=== PATIENT | female | born 1995 ===

== ENCOUNTER 2018-05-02 12:05 | Inpatient (IN) ==
[2018-05-02] MEDS ORDERED: LACTATED RINGERS 1,000 ML IV ONE (12:39)
[2018-05-02] MEDS ORDERED: ONDANSETRON 4 MG/2 ML VIAL IV PRN (12:39)
[2018-05-02] MEDS ORDERED: BUTORPHANOL 2 MG/ML VIAL IV PRN (12:39)
[2018-05-02 13:31] LABS: Basophils % 0.2 % (0.0-0.8); Eosinophils % 0.5 % (0.00-10.9); Hematocrit 35.3 VOL% (35.7-47.0); Hemoglobin 11.7 GM/DL (12.0-16.0); Immature Granulocytes % 0.3 %; Immature Granulocytes Absolute 0.03 #; Lymphocytes # 1.9 10*3/uL (1.4-4.0); Lymphocytes % 22.1 % (21.3-54.2); Mean Corpuscular HGB Conc 33.1 GM/DL (32-36); Mean Corpuscular Hemoglobin 28 PG (27-34); Mean Corpuscular Volume 85.5 FL (87-102); Mean Platelet Volume 11.4 FL (9.6-12.0); Monocytes # 0.5 10*3/uL (0.11-0.8); Monocytes % 6.1 % (1.7-12.7); Neutrophils # 6.1 10*3/uL (1.4-7.4); Neutrophils % 70.8 % (38.7-73.9); Platelet Count 250 T/CUMM (130-400); Red Blood Count 4.13 MC/CUMM (3.8-5.5); Red Cell Distribution Width 14.4 % (9.3-17.3); White Blood Count 8.7 T/CUMM (4-12)
[2018-05-02 13:48] LABS: Albumin 2.5 G/DL (3.4-5.0); Bilirubin,Total 0.4 MG/DL (0.2-1.0); Calcium 8.3 MG/DL (8.5-10.1); Osmolality,Calculated 273.5 MOS/KG (273-304); Potassium 3.8 MMOL/L (3.5-5.1)
[2018-05-02] MEDS: LACTATED RINGERS 1,000 ML IV SCH (15:27)
[2018-05-03] MEDS: LACTATED RINGERS 1,000 ML IV SCH ×2 (00:30→08:54)
[2018-05-03] MEDS: MEPERIDINE 50 MG/1 ML VIAL IV PRN ×2 (00:35→06:45)
[2018-05-03] MEDS ORDERED: FAMOTIDINE 20 MG/2 ML VIAL IV ONE (09:35)
[2018-05-03] MEDS ORDERED: ePHEDrine 50 MG/ML AMP IV PRN (09:35)
[2018-05-03] MEDS ORDERED: diphenhydrAMINE 50 MG/1 ML VIAL IV PRN (09:35)
[2018-05-03] MEDS ORDERED: CITRIC ACID/SODIUM CITRATE 30 ML UDCUP PO ONE (09:35)
[2018-05-03] MEDS ORDERED: LACTATED RINGERS 1,000 ML IV ONE (09:35)
[2018-05-03] MEDS ORDERED: fentaNYL 2 MCG/ROPIV 0.2% EPID 150 ML EPIDURAL SCH (10:00)
[2018-05-03] MEDS ORDERED: OXYTOCIN/LR 20 UNIT/1,000 ML BAG IV SCH (10:30)
[2018-05-03 11:42] LABS: Apearance,Urine CLEAR (Clear); Bacteria,Urine Occasional /HPF (Few); Bilirubin,Urine Negative (Negative); Blood, Urine Negative (Negative); Glucose,Urine (UA) Negative (Negative); Ketones,Urine Negative (Negative); Nitrite,Urine Negative (Negative); Protein,Urine Negative; RBC,Urine <1 /HPF (0-4); Urine Color Straw (Yellow); Urine Specific Gravity 1.006 (1.001-1.035); Urine Urobilinogen < 2.0 EU/DL (0.2-1.0); WBC,Urine 1 /HPF (0-6)
[2018-05-03] MEDS ORDERED: OXYTOCIN/LR 20 UNIT/1,000 ML BAG IV ONE ×2 (12:59→15:52)
[2018-05-03] MEDS ORDERED: AMPICILLIN/SULBACTAM 3,000 MG in SODIUM CHLORIDE 0.9% 100 ML IV ONE (12:59)
[2018-05-03] MEDS ORDERED: LIDOCAINE MPF 2% /EPI 20 ML VIAL ONE (13:02)
[2018-05-03] MEDS ORDERED: OXYTOCIN 10 UNIT/ML VIAL ONE (13:02)
[2018-05-03] MEDS ORDERED: MORPHINE 10 MG/10 ML VIAL ONE (13:02)
[2018-05-03] MEDS ORDERED: KETOROLAC 60 MG/2 ML VIAL IM ONE (13:02)
[2018-05-03] MEDS ORDERED: ONDANSETRON 4 MG/2 ML VIAL IV PRN (15:52)
[2018-05-03] MEDS ORDERED: SIMETHICONE CHEW 80 MG TABLET PO PRN (15:52)
[2018-05-03] MEDS ORDERED: MAGNESIUM HYDROXIDE SUSP 30 ML UDCUP PO PRN (15:52)
[2018-05-03] MEDS ORDERED: ACETAMINOPHEN 325 MG TABLET PO PRN (15:52)
[2018-05-03] MEDS ORDERED: RHO(D) IMMUNE GLOBULIN 300 MCG SYRINGE IM ONE (15:52)
[2018-05-03] MEDS ORDERED: ceFAZolin 1,000 MG in SYRINGE 1 EACH IV SCH (16:00)
[2018-05-03 16:09] LABS: Cord Arterial Blood HCO3 25.2 MMOL/L
[2018-05-03 16:11] LABS: Cord Venous Blood HCO3 23.9 MMOL/L; Cord Venous Blood PCO2 44.5 MMHG; Cord Venous Blood PO2 36.9 MMHG
[2018-05-03] MEDS ORDERED: hydrOXYzine HCL 25 MG/1 ML VIAL IM PRN (16:11)
[2018-05-03] MEDS ORDERED: MORPHINE 10 MG/1 ML VIAL IV PRN (16:12)
[2018-05-03] MEDS ORDERED: fentaNYL 100 MCG/2 ML VIAL ONE (16:14)
[2018-05-03] MEDS ORDERED: MIDAZOLAM 2 MG/2 ML VIAL ONE (16:14)
[2018-05-03] MEDS ORDERED: KETAMINE 500 MG/10 ML VIAL ONE (16:15)
[2018-05-03] MEDS: ceFAZolin 1,000 MG in SYRINGE 1 EACH IV SCH (23:35)
[2018-05-04] MEDS: LACTATED RINGERS 1,000 ML IV SCH ×2 (00:42→00:54)
[2018-05-04] MEDS: DOCUSATE SODIUM 100 MG CAPSULE PO SCH ×3 (01:06→21:32)
[2018-05-04 01:16] LABS: Basophils % 0.1 % (0.0-0.8); Eosinophils % 0.4 % (0.00-10.9); Hematocrit 31.9 VOL% (35.7-47.0); Hemoglobin 10.8 GM/DL (12.0-16.0); Immature Granulocytes % 0.3 %; Immature Granulocytes Absolute 0.03 #; Lymphocytes # 1.8 10*3/uL (1.4-4.0); Lymphocytes % 19.7 % (21.3-54.2); Mean Corpuscular HGB Conc 33.9 GM/DL (32-36); Mean Corpuscular Hemoglobin 29 PG (27-34); Mean Corpuscular Volume 84.4 FL (87-102); Mean Platelet Volume 10.6 FL (9.6-12.0); Monocytes # 0.7 10*3/uL (0.11-0.8); Monocytes % 7.5 % (1.7-12.7); Neutrophils # 6.7 10*3/uL (1.4-7.4); Platelet Count 214 T/CUMM (130-400); Red Blood Count 3.78 MC/CUMM (3.8-5.5); Red Cell Distribution Width 14.4 % (9.3-17.3); White Blood Count 9.4 T/CUMM (4-12)
[2018-05-04] MEDS ORDERED: BENZOCAINE/MENTHOL LOZENGE 18/BOX PO PRN (03:50)
[2018-05-04] MEDS: ceFAZolin 1,000 MG in SYRINGE 1 EACH IV SCH (06:39)
[2018-05-04] MEDS: MULTIVITAMIN (PRENATAL) TABLET PO SCH (08:54)
[2018-05-04 09:26] LABS: Basophils % 0.3 % (0.0-0.8); Eosinophils # 0.1 10*3/uL (0.0-0.87); Eosinophils % 0.9 % (0.00-10.9); Hematocrit 29.8 VOL% (35.7-47.0); Hemoglobin 9.5 GM/DL (12.0-16.0); Immature Granulocytes % 0.3 %; Immature Granulocytes Absolute 0.02 #; Lymphocytes # 1.8 10*3/uL (1.4-4.0); Lymphocytes % 23.1 % (21.3-54.2); Mean Corpuscular HGB Conc 31.9 GM/DL (32-36); Mean Corpuscular Hemoglobin 28 PG (27-34); Mean Corpuscular Volume 86.6 FL (87-102); Mean Platelet Volume 10.7 FL (9.6-12.0); Monocytes # 0.7 10*3/uL (0.11-0.8); Monocytes % 8.5 % (1.7-12.7); Neutrophils # 5.1 10*3/uL (1.4-7.4); Neutrophils % 66.9 % (38.7-73.9); Platelet Count 194 T/CUMM (130-400); Red Blood Count 3.44 MC/CUMM (3.8-5.5); Red Cell Distribution Width 14.4 % (9.3-17.3); White Blood Count 7.7 T/CUMM (4-12)
[2018-05-04] MEDS: IBUPROFEN 800 MG TABLET PO PRN (13:48)
[2018-05-05] MEDS: IBUPROFEN 800 MG TABLET PO PRN (00:59)
[2018-05-05] MEDS: MULTIVITAMIN (PRENATAL) TABLET PO SCH (08:36)
[2018-05-05] MEDS: DOCUSATE SODIUM 100 MG CAPSULE PO SCH ×2 (08:36→21:07)
[2018-05-06 07:13] VITALS: BP 128/68
[2018-05-06] MEDS: MULTIVITAMIN (PRENATAL) TABLET PO SCH (08:26)
[2018-05-06] MEDS: DOCUSATE SODIUM 100 MG CAPSULE PO SCH (08:26)
== END 2018-05-06 10:20 | disposition home or self-care (01) | DRG 540 ==
LOC: N.LDOUT 12:05 → N.LD 12:06 → N.OB 05-03 18:18
PROVIDERS: ADMIT Obstetrics & Gynecology; ATTEND Obstetrics & Gynecology
PROC: LDCSECT (ICD-10-PCS; 2018-05-03 12:55)

== ENCOUNTER 2019-06-21 15:14 | Inpatient (IN) ==
[2019-06-21] MEDS ORDERED: CITRIC ACID/SODIUM CITRATE 30 ML UDCUP PO ONE (15:21)
[2019-06-21] MEDS ORDERED: ceFAZolin 3,000 MG in SYRINGE 1 EACH IV ONE (15:21)
[2019-06-21] MEDS ORDERED: FAMOTIDINE 20 MG/2 ML VIAL IV ONE (15:21)
[2019-06-21] MEDS ORDERED: LACTATED RINGERS 1,000 ML IV SCH ×2 (15:30→20:30)
[2019-06-21 15:45] LABS: Basophils % 0.1 % (0.0-0.8); Eosinophils % 0.6 % (0.00-10.9); Hematocrit 34.5 VOL% (35.7-47.0); Hemoglobin 10.7 GM/DL (12.0-16.0); Immature Granulocytes % 0.4 %; Immature Granulocytes Absolute 0.03 #; Lymphocytes # 2.1 10*3/uL (1.4-4.0); Lymphocytes % 29.4 % (21.3-54.2); Mean Corpuscular Volume 87.3 FL (87-102); Mean Platelet Volume 10.2 FL (9.6-12.0); Monocytes % 6.5 % (1.7-12.7); Platelet Count 233 T/CUMM (130-400); Red Blood Count 3.95 MC/CUMM (3.8-5.5); Red Cell Distribution Width 14.3 % (9.3-17.3); White Blood Count 7.1 T/CUMM (4-12)
[2019-06-21] MEDS ORDERED: OXYTOCIN/LR 20 UNIT/1,000 ML BAG IV ONE ×2 (15:51→20:19)
[2019-06-21 16:47] LABS: Hepatitis B Surface Ag Quant < 0.10 Index; Hepatitis B Surface Ag Result Negative (Negative)
[2019-06-21 17:13] LABS: HIV Antigen/Antibody Result Nonreactive (Nonreactive); Rubella Antibody IgG 2.8 IU/ML
[2019-06-21] MEDS ORDERED: BUPIVACAINE 0.5% 50 ML VIAL ONE (18:06)
[2019-06-21 18:29] LABS: Apearance,Urine CLEAR (Clear); Bilirubin,Urine Negative (Negative); Blood, Urine Moderate mg/dL (Negative); Glucose,Urine (UA) Negative (Negative); Ketones,Urine 20 mg/dL (Negative); Mucus,Urine Few /LPF (Occasional); Nitrite,Urine Negative (Negative); Protein,Urine Negative; RBC,Urine 5 /HPF (0-4); Squamous Epithelial Cell,Urine Occasional /HPF (0-10); Urine Color Yellow (Yellow); Urine Specific Gravity 1.023 (1.001-1.035); WBC,Urine 2 /HPF (0-6)
[2019-06-21] MEDS ORDERED: OXYTOCIN/LR 30 UNIT/1,000 ML BAG IV ONE (19:32)
[2019-06-21] MEDS ORDERED: miSOPROStol 200 MCG TABLET ONE (19:32)
[2019-06-21] MEDS ORDERED: OXYTOCIN 10 UNIT/ML VIAL ONE (19:32)
[2019-06-21] MEDS ORDERED: CARBOPROST TROMETHAMINE 250 MCG/ML AMP IM ONE (19:33)
[2019-06-21] MEDS ORDERED: METHYLERGONOVINE 0.2 MG/1 ML AMP ONE (19:33)
[2019-06-21] MEDS ORDERED: SIMETHICONE CHEW 80 MG TABLET PO PRN (20:19)
[2019-06-21] MEDS ORDERED: ONDANSETRON 4 MG/2 ML VIAL IV PRN (20:19)
[2019-06-21] MEDS ORDERED: RHO(D) IMMUNE GLOBULIN 300 MCG SYRINGE IM ONE (20:19)
[2019-06-21] MEDS ORDERED: ACETAMINOPHEN 325 MG TABLET PO PRN (20:19)
[2019-06-21] MEDS ORDERED: MORPHINE 10 MG/10 ML VIAL ONE (21:14)
[2019-06-21] MEDS ORDERED: fentaNYL 100 MCG/2 ML VIAL ONE (21:14)
[2019-06-21] MEDS ORDERED: BUPIVACAINE SPINAL 0.75% 2 ML AMP SPINAL ONE (21:15)
[2019-06-22] MEDS: ceFAZolin 1,000 MG in SYRINGE 1 EACH IV SCH ×2 (02:53→09:41)
[2019-06-22 03:45] LABS: Basophils % 0.3 % (0.0-0.8); Eosinophils % 0.2 % (0.00-10.9); Hemoglobin 9.8 GM/DL (12.0-16.0); Immature Granulocytes % 0.6 %; Immature Granulocytes Absolute 0.07 #; Lymphocytes # 2.4 10*3/uL (1.4-4.0); Lymphocytes % 21.5 % (21.3-54.2); Mean Corpuscular HGB Conc 30.6 GM/DL (32-36); Mean Platelet Volume 10.7 FL (9.6-12.0); Monocytes % 6.4 % (1.7-12.7); Platelet Count 206 T/CUMM (130-400); Red Blood Count 3.72 MC/CUMM (3.8-5.5); Red Cell Distribution Width 14.3 % (9.3-17.3)
[2019-06-22] MEDS: MULTIVITAMIN (PRENATAL) TABLET PO SCH (09:41)
[2019-06-22] MEDS: DOCUSATE SODIUM 100 MG CAPSULE PO SCH ×2 (09:41→21:05)
[2019-06-22] MEDS: MAGNESIUM HYDROXIDE SUSP 30 ML UDCUP PO PRN (21:04)
[2019-06-22] MEDS: IBUPROFEN 800 MG TABLET PO PRN (22:24)
[2019-06-23] MEDS: MULTIVITAMIN (PRENATAL) TABLET PO SCH (09:43)
[2019-06-23] MEDS: MAGNESIUM HYDROXIDE SUSP 30 ML UDCUP PO PRN (09:43)
[2019-06-23] MEDS: DOCUSATE SODIUM 100 MG CAPSULE PO SCH (09:43)
[2019-06-23 11:49] VITALS: BP 132/73
[2019-06-23] MEDS ORDERED: MEASLES/MUMPS/RUBELLA VACCINE 0.5 ML VIAL SUBCUT ONE (14:39)
[2019-06-23] MEDS: IBUPROFEN 800 MG TABLET PO PRN (15:04)
== END 2019-06-23 15:35 | disposition home or self-care (01) | DRG 540 ==
LOC: N.LD 15:14 → N.OB 06-22
PROVIDERS: ADMIT Obstetrics & Gynecology; ATTEND Obstetrics & Gynecology
PROC: LDCSECT (ICD-10-PCS; 2019-06-21 18:00)